=== PATIENT | female | born 1985 ===

== ENCOUNTER 2018-07-14 01:43 | Emergency (ER) | payer OTHER, SELFPAY ==
[2018-07-14 02:03] VITALS: BP 136/84; RESP 16; TEMP 98.6; O2SAT 100
[2018-07-14] MEDS ORDERED: Promethazine/Cod 6.25mg-10mg/5ml Syr UD PO STA (02:41)
[2018-07-14] MEDS ORDERED: Albuterol 0.083% Inhal Sol (2.5 mg/3 mL) UD INH STA (02:42)
[2018-07-14] MEDS ORDERED: Promethazine/Cod 6.25mg-10mg/5ml Syr UD ONE (02:49)
[2018-07-14] MEDS ORDERED: Albuterol 0.083% Inhal Sol (2.5 mg/3 mL) UD ONE (02:50)
--- NOTE | 2018-07-14 03:06 | ED PDOC ---
History of Present Illness History of Present Illness: 33 y/o female with no significant PMHx presents to the ED complaining of cough and congestion associated with sore throat and chest pain, onset two days ago. Patient states cough is dry and chest pain only occurs when she coughs. Patient also reports of feeling congested in the right ear. Patient states she has difficulty breathing at times and will occasionally vomiting with the cough. PMD: No Provider HPI: Influenza Time Seen by Provider: 07/14/18 02:15 Chief Complaint: Cough, Cold, Congestion Chief Complaint (Provider): Cough, Cold, Congestion History Per: Patient Exam Limitations: no limitations Have you had recent travel within the past 21 days to any of: No Onset/Duration Of Symptoms: Days (x2) Symptoms include: sore throat, cough, nasal congestion, vomiting, chest pain, difficulty breathing Past Medical History Reviewed: Historical Data, Nursing Documentation, Vital Signs Vital Signs: Last Vital Signs Temp 98.6 F 07/14/18 02:02 Pulse 90 07/14/18 02:02 Resp 16 07/14/18 02:02 BP 136/84 07/14/18 02:02 Pulse Ox 100 07/14/18 02:02 - Medical History PMH: No Chronic Diseases - Surgical History Surgical History: - Family History Family History: States: Unknown Family Hx - Social History Current smoker - smoking cessation education provided: No Alcohol: None Drugs: Denies - Home Medications Home Medications: Ambulatory Orders Medication Instructions Recorded Codeine Phosphate/Promethazi 5 ml PO Q6 PRN #100 ml 08/03/15 [Promethazine with Codeine 10 mg/5 ml-6.25 mg/] Oseltamivir Phosphate [Tamiflu] 75 mg PO BID #10 cap 08/03/15 Albuterol HFA [Ventolin HFA 90 1 puff IH Q6 PRN #1 inhaler 07/14/18 mcg/actuation (8 g)] Promethazine/Codeine 5 ml PO Q6 PRN #100 ml 07/14/18 [Phenergan/Codeine Oral Syrup] - Allergies Allergies/Adverse Reactions: Allergies Allergy/AdvReac Type Severity Reaction Status Date / Time ibuprofen Allergy Verified 07/14/18 02:40 Review of Systems ROS Statement: Except As Marked, All Systems Reviewed And Found Negative Constitutional: Negative for: Fever ENT: Positive for: Nose Congestion, Throat Pain Cardiovascular: Positive for: Chest Pain Respiratory: Positive for: Cough, Other (Dyspnea) Gastrointestinal: Positive for: Vomiting Physical Exam - Reviewed Nursing Documentation Reviewed: Yes Vital Signs Reviewed: Yes - Physical Exam Appears: Positive for: No Acute Distress (Comfortable) Head Exam: Positive for: ATRAUMATIC, NORMOCEPHALIC Skin: Positive for: Normal Color, Warm, Dry Eye Exam: Positive for: Normal appearance, EOMI, PERRL Neck: Positive for: Normal, Painless ROM, Supple Cardiovascular/Chest: Positive for: Regular Rate, Rhythm. Negative for: Murmur Respiratory: Positive for: Normal Breath Sounds. Negative for: Respiratory Distress Gastrointestinal/Abdominal: Positive for: Normal Exam, Soft. Negative for: Tenderness Back: Positive for: Normal Inspection. Negative for: L CVA Tenderness, R CVA Tenderness, Vertebral Tenderness Extremity: Positive for: Normal ROM. Negative for: Pedal Edema, Deformity Neurologic/Psych: Positive for: Alert, Oriented. Negative for: Motor/Sensory Deficits Medical Decision Making Medical Decision Making: Time: 024 Impression: Cough, Congestion and chest pain Differentials include but not limited to acute bronchitis and Upper Respiratory Infection Rule Out pneumonia Plan: -- EKG -- CXR Two Views -- Albuterol 0.083% 2.5 mg INH -- Phenergan/Codeine Oral Syrup Scribe Attestation: Documented by Manuel Haynes acting as a scribe for Dr. Aaron Pedraza MD. Provider Scribe Attestation: All medical record entries made by the Scribe were at my direction and personally dictated by me. I have reviewed the chart and agree that the record accurately reflects my personal performance of the history, physical exam, medical decision making, and the department course for this patient. I have also personally directed, reviewed, and agree with the discharge instructions and disposition. - ECG ECG Rhythm: Positive for: Normal QRS, Sinus Rhythm. Negative for: ST/T Changes Rate: 79 O2 Sat by Pulse Oximetry: 100 (RA) Pulse Ox Interpretation: Normal Disposition - Clinical Impression Clinical Impression: Bronchitis, URI (upper respiratory infection) - Patient ED Disposition Is Patient to be Admitted: No Doctor Will See Patient In The: Office Counseled Patient/Family Regarding: Studies Performed, Diagnosis, Need For Followup - Disposition Disposition: Routine/Home Disposition Time: 03:57 Condition: GOOD Additional Instructions: Take your medications as instructed. follow up with your PCP in 2-3 days. ELISHA SANCHEZ, thank you for letting us take care of you today. Your provider was Aaron Pedraza MD and you were treated for SOB. The emergency medical care you received today was directed at your acute symptoms. If you were prescribed any medication, please fill it and take as directed. It may take several days for your symptoms to resolve. Return to the Emergency Department if your symptoms worsen, do not improve, or if you have any other problems. Please contact your doctor or call one of the physicians/clinics you have been referred to that are listed on the Patient Visit Information form that is included in your discharge packet. Bring any paperwork you were given at discharge with you along with any medications you are taking to your follow up visit. Our treatment cannot replace ongoing medical care by a primary care provider outside of the emergency department. Thank you for allowing the [facility] team to be part of your care today. If you had an X-Ray or CT scan: A Radiologist will review the ED reading if any change in treatment is needed we will contact you. If you had a blood, urine, or wound culture: It will take several days for the results, if any change in treatment is needed we will contact you. If you had an STI test: It will take 48 hours for the results. Please call after 1 week if you have not heard back. Prescriptions: Albuterol HFA [Ventolin HFA 90 mcg/actuation (8 g)] 1 puff IH Q6 PRN #1 inhaler PRN Reason: Cough Promethazine/Codeine [Phenergan/Codeine Oral Syrup] 5 ml PO Q6 PRN #100 ml PRN Reason: Cough Instructions: Acute Bronchitis
[2018-07-14 03:10] VITALS: PULSE 79
--- NOTE | 2018-07-14 07:34 | CARD ---
APPROVED REPORT Date of service: 07/14/2018 <Conclusion> Normal sinus rhythm Nonspecific ST abnormality Abnormal ECG
--- NOTE | 2018-07-14 16:33 | RAD ---
Date of service: 07/14/2018 HISTORY: chets pain cough COMPARISON: 08/03/2015 TECHNIQUE: Chest PA and lateral FINDINGS: LUNGS: No active pulmonary disease. PLEURA: No significant pleural effusion identified. No pneumothorax apparent. CARDIOVASCULAR: Normal. OSSEOUS STRUCTURES: No significant abnormalities. VISUALIZED UPPER ABDOMEN: Normal. OTHER FINDINGS: None. IMPRESSION: No active disease.
== END 2018-07-14 04:16 | disposition home or self-care (01) ==
LOC: H.ER 01:43
DX: J20.9 Acute bronchitis, unspecified (principal); J06.9 Acute upper respiratory infection, unspecified

== ENCOUNTER 2018-10-01 12:32 | Emergency (ER) | payer SELFPAY ==
[2018-10-01 13:49] LABS: BASO # 0.1 K/uL (0.0-0.2); BASO % 0.9 % (0.0-2.0); EOS # 0.2 K/uL (0.0-0.7); EOS % 2.2 % (0.0-4.0); HEMOGLOBIN 12.3 g/dL (12.0-16.0); LYMPH # 2.7 K/uL (1.0-4.3); LYMPH % 34.8 % (20.0-40.0); MEAN CELL VOLUME 84.9 fl (81.0-99.0); MEAN CORPUSCULAR HEMOGLOBIN 27.7 pg (27.0-31.0); MEAN CORPUSCULAR HGB CONC 32.6 g/dL (33.0-37.0); MEAN PLATELET VOLUME 9.8 fl (7.2-11.7); MONO # 0.5 K/uL (0.0-0.8); MONO % 6.4 % (0.0-10.0); NEUT # 4.3 K/uL (1.8-7.0); NEUT % 55.7 % (50.0-75.0); NRBC % 0.1 % (0.0-0.0); RBC 4.44 Mil/uL (3.80-5.20); RED CELL DISTRIBUTION WIDTH 13.8 % (11.5-14.5); WHITE BLOOD COUNT 7.6 K/uL (4.8-10.8)
[2018-10-01 13:59] LABS: ALB/GLOB RATIO 1.2 (1.0-2.1); ALBUMIN 4.4 g/dL (3.5-5.0); ALT/SGPT 24 U/L (9-52); AST/SGOT 23 U/L (14-36); BLOOD UREA NITROGEN 13 mg/dl (7-17); CALCIUM 9.4 mg/dL (8.4-10.2); GFR NON-AFRICAN AMERICAN > 60; LIPASE 131 U/L (23-300)
--- NOTE | 2018-10-01 15:38 | ED PDOC ---
HPI: Abdomen Time Seen by Provider: 10/01/18 12:52 Chief Complaint (Nursing): Abdominal Pain Chief Complaint (Provider): Abdominal Pain History Per: Patient History/Exam Limitations: no limitations Onset/Duration Of Symptoms: Days (x2) Current Symptoms Are (Timing): Still Present Associated Symptoms: Nausea, Vomiting. denies: Fever Additional Complaint(s): 33 year old female, sent from the [facility], presents to the ED complaining of right upper quadrant pain on going since yesterday but intermittent for a month associated with nausea and vomiting. Last vomiting episode was in the clinic earlier today. Denies fever, yellowing of the skin or eyes, or difficulty breathing. PMD: Christine Menchaca Past Medical History Reviewed: Historical Data, Nursing Documentation, Vital Signs Vital Signs: Last Vital Signs Temp 98.3 F 10/01/18 12:42 Pulse 77 10/01/18 12:42 Resp 16 10/01/18 12:42 BP 133/83 10/01/18 12:42 Pulse Ox 99 10/01/18 12:42 - Medical History PMH: No Chronic Diseases - Surgical History Surgical History: - Family History Family History: States: Unknown Family Hx - Home Medications Home Medications: Ambulatory Orders Medication Instructions Recorded Codeine Phosphate/Promethazi 5 ml PO Q6 PRN #100 ml 08/03/15 [Promethazine with Codeine 10 mg/5 ml-6.25 mg/] Oseltamivir Phosphate [Tamiflu] 75 mg PO BID #10 cap 08/03/15 Albuterol HFA [Ventolin HFA 90 1 puff IH Q6 PRN #1 inhaler 07/14/18 mcg/actuation (8 g)] Promethazine/Codeine 5 ml PO Q6 PRN #100 ml 07/14/18 [Phenergan/Codeine Oral Syrup] Ondansetron ODT [Zofran ODT] 4 mg PO Q6 PRN #10 odt 10/01/18 traMADol [Ultram] 50 mg PO TID PRN #12 tab 10/01/18 - Allergies Allergies/Adverse Reactions: Allergies Allergy/AdvReac Type Severity Reaction Status Date / Time ibuprofen Allergy RASH Verified 10/01/18 12:45 Review of Systems ROS Statement: Except As Marked, All Systems Reviewed And Found Negative Constitutional: Negative for: Fever Cardiovascular: Negative for: Chest Pain Gastrointestinal: Positive for: Nausea, Vomiting, Abdominal Pain Neurological: Negative for: Headache, Dizziness Physical Exam - Reviewed Nursing Documentation Reviewed: Yes Vital Signs Reviewed: Yes - Physical Exam Appears: Positive for: Non-toxic, No Acute Distress (well hydrated) Head Exam: Positive for: ATRAUMATIC, NORMOCEPHALIC Skin: Positive for: Normal Color, Warm, Dry. Negative for: Pallor Eye Exam: Positive for: Normal appearance. Negative for: Scleral icterus Neck: Positive for: Normal, Painless ROM Cardiovascular/Chest: Positive for: Regular Rate, Rhythm. Negative for: Murmur Respiratory: Positive for: Normal Breath Sounds. Negative for: Wheezing, Respiratory Distress Gastrointestinal/Abdominal: Positive for: Tenderness (Epigastric tenderness) Extremity: Positive for: Normal ROM Neurologic/Psych: Positive for: Alert, Oriented. Negative for: Motor/Sensory Deficits - Laboratory Results Result Diagrams: 10/01/18 13:38 10/01/18 13:38 - ECG O2 Sat by Pulse Oximetry: 99 (RA) Pulse Ox Interpretation: Normal Medical Decision Making Medical Decision Making: Initial Impression: Workup for upper abdominal pain r/o biliary colic Initial Plan: --CMP --Lipase stat --ED urine --ED urine dipstick --CBC --Tylenol 650mg PO --Zofran 4mg IV --Abdomen US Chest X-ray from June which was read by radiology was negative. Labs reviewed and unremarkable including LFTs. Awaiting abdominal ultrasound. Zofran and Tylenol ordered for pain and symptoms. Labs reviewed LFTs and WBC negative US report reviewed +gallstones but no cholecystitis, normal CBD Discussed results w patient and need for referral to surgery soon, explained risks of procrastinating with scheduling appt or potential surgery, and indicati ons for return. DC from ED given normal WBC, normal LFTs, no evidence cholecystitis and normal CBD. Fat free diet, fluids, surgery referral soon. Scribe Attestation: Documented by Genaro Amos acting as a scribe for Roby Francois III, DO. Provider Scribe Attestation: All medical record entries made by the Scribe were at my direction and personally dictated by me. I have reviewed the chart and agree that the record accurately reflects my personal performance of the history, physical exam, medical decision making, and the department course for this patient. I have also personally directed, reviewed, and agree with the discharge instructions and disposition. Disposition - Clinical Impression Clinical Impression: Gallstones - Patient ED Disposition Is Patient to be Admitted: No Counseled Patient/Family Regarding: Studies Performed, Diagnosis, Need For Followup, Rx Given - Disposition Referrals: Jason Orozco MD [Staff Provider] - Disposition: Routine/Home Disposition Time: 16:45 Condition: STABLE Additional Instructions: SEE GENERAL SURGEON FOR FURTHER TESTING AND POSSIBLE SURGERY FOR REMOVAL OF GALLBLADDER. RECOMMEND LOW FAT DIET, DRINK PLENTY OF FLUIDS AND RETURN TO ER FOR ANY WORSE OR NEW SYMPTOMS. DELAYING SURGERY COULD HAVE SIGNIFICANT COMPLICATIONS TO YOUR LIVER, PANCREAS AND OTHER ABDOMINAL ORGANS. Prescriptions: Ondansetron ODT [Zofran ODT] 4 mg PO Q6 PRN #10 odt PRN Reason: Nausea/Vomiting traMADol [Ultram] 50 mg PO TID PRN #12 tab PRN Reason: Pain, Moderate (4-7) Instructions: Gallstones (DC) Forms: [employer] (Telugu)
--- NOTE | 2018-10-01 16:53 | US ---
Date of service: 10/01/2018 HISTORY: RUQ pain COMPARISON: None. TECHNIQUE: Sonographic evaluation of the right upper quadrant of the abdomen. FINDINGS: LIVER: Measures 15.2 cm in length. Diffusely echogenic echogenicity of the liver parenchyma. No mass. No intrahepatic bile duct dilatation. GALLBLADDER: Moderate gallbladder distention is appreciate with cholelithiasis in the lumen. No significant mural thickening. No reported sonographic Garnica sign. No pericholecystic fluid collection evident. COMMON BILE DUCT: Measures 3.0 mm. No stones. No dilatation. PANCREAS: The tail of the pancreas is obscured by overlying bowel gas with remainder unremarkable. RIGHT KIDNEY: Measures 11.9 cm in length. Normal echogenicity. No calculus, mass, or hydronephrosis. AORTA: No aneurysmal dilatation. IVC: Unremarkable. OTHER FINDINGS: None . IMPRESSION: Hepatic steatosis or other infiltrative hepatic process appreciated. Cholelithiasis without suspicious additional findings. Normal caliber CBD. Partial imaging of the pancreas.
[2018-10-01 17:44] VITALS: BP 115/74; PULSE 88; RESP 18; TEMP 98.2; O2SAT 98
== END 2018-10-01 17:43 | disposition home or self-care (01) ==
LOC: H.ER 12:32
DX: K80.20 Calculus of gallbladder without cholecystitis without obstruction (principal)
CPT/HCPCS: 76705; 80053; 81025; 83690; 85025; 99283; J2405

== ENCOUNTER 2018-10-08 18:41 | Emergency (ER) | payer SELFPAY ==
[2018-10-08 19:42] VITALS: BP 133/81; PULSE 76; RESP 18; TEMP 98; O2SAT 100
[2018-10-08] MEDS ORDERED: Sodium Chloride 0.9% 1,000 ML IV STA (20:40)
--- NOTE | 2018-10-08 20:43 | ED PDOC ---
HPI: Abdomen Time Seen by Provider: 10/08/18 20:07 Chief Complaint (Nursing): Abdominal Pain Chief Complaint (Provider): abdominal pain History Per: Patient History/Exam Limitations: no limitations Onset/Duration Of Symptoms: Days (1) Current Symptoms Are (Timing): Still Present Location Of Pain/Discomfort: RUQ, Epigastric Associated Symptoms: Nausea, Vomiting Additional Complaint(s): 33 y/o female presents for evaluation of upper abdominal pain x 1 day. Associated 5 episodes of vomiting. Patient states she has been having similar problems for one month now, was evaluated in ED one week ago and found to have gallbladder disease and is scheduled to see the surgeon on . Patient states she presents today due to persistent vomiting that began this morning. Patient reports pain in her abdomen when she vomits. Denies fever, chest pain, shortness of breath, palpitations, urinary symptoms. Past Medical History Reviewed: Historical Data, Nursing Documentation, Vital Signs Vital Signs: Last Vital Signs Temp 98 F 10/08/18 19:40 Pulse 76 10/08/18 19:40 Resp 18 10/08/18 19:40 BP 133/81 10/08/18 19:40 Pulse Ox 100 10/08/18 19:40 - Medical History PMH: No Chronic Diseases - Surgical History Surgical History: - Family History Family History: States: Unknown Family Hx - Living Arrangements Living Arrangements: With Family - Home Medications Home Medications: Ambulatory Orders Medication Instructions Recorded Codeine Phosphate/Promethazi 5 ml PO Q6 PRN #100 ml 08/03/15 [Promethazine with Codeine 10 mg/5 ml-6.25 mg/] Oseltamivir Phosphate [Tamiflu] 75 mg PO BID #10 cap 08/03/15 Albuterol HFA [Ventolin HFA 90 1 puff IH Q6 PRN #1 inhaler 07/14/18 mcg/actuation (8 g)] Promethazine/Codeine 5 ml PO Q6 PRN #100 ml 07/14/18 [Phenergan/Codeine Oral Syrup] Ondansetron ODT [Zofran ODT] 4 mg PO Q6 PRN #10 odt 10/01/18 traMADol [Ultram] 50 mg PO TID PRN #12 tab 10/01/18 - Allergies Allergies/Adverse Reactions: Allergies Allergy/AdvReac Type Severity Reaction Status Date / Time ibuprofen Allergy RASH Verified 10/08/18 19:40 Review of Systems ROS Statement: Except As Marked, All Systems Reviewed And Found Negative Gastrointestinal: Positive for: Nausea, Vomiting, Abdominal Pain Physical Exam - Reviewed Nursing Documentation Reviewed: Yes Vital Signs Reviewed: Yes - Physical Exam Appears: Positive for: Well, Non-toxic, No Acute Distress Head Exam: Positive for: ATRAUMATIC, NORMAL INSPECTION, NORMOCEPHALIC Skin: Positive for: Normal Color Eye Exam: Positive for: Normal appearance ENT: Positive for: Normal ENT Inspection Cardiovascular/Chest: Positive for: Regular Rate, Rhythm Respiratory: Positive for: Normal Breath Sounds Gastrointestinal/Abdominal: Positive for: Bowel Sounds, Soft, Tenderness (epigastric, RUQ; neg Garnica's) Back: Positive for: Normal Inspection Extremity: Positive for: Normal ROM Neurologic/Psych: Positive for: Alert, Oriented - Laboratory Results Result Diagrams: 10/08/18 21:18 10/08/18 21:18 - ECG O2 Sat by Pulse Oximetry: 100 - Progress ED Course And Treament: -cbc -cmp -lipase -IV NS 1L bolis -IV reglan 10mg 22:00 Patient resting comfortably; states she is feeling better, tolerated PO and is requesting to be discharged at this time Labs show no significant changes from last week Patient educated on findings, advised to follow up with surgeon as scheduled on Continue previously prescribed medications PRN Return precautions given Patient demonstrates full understanding of discharge instructions Patient requires no further intervention in the ED and is stable for discharge at this time Disposition - Clinical Impression Clinical Impression: Gallstones - Patient ED Disposition Is Patient to be Admitted: No Counseled Patient/Family Regarding: Studies Performed, Diagnosis, Need For Followup - Disposition Disposition: Routine/Home Disposition Time: 22:01 Condition: IMPROVED Additional Instructions: Follow up with your surgeon as scheduled [place] diet Instructions: Gallstones
[2018-10-08 21:22] LABS: SQUAMOUS EPITHIAL 1 /hpf (0-5); URINE BILIRUBIN NEGATIVE (NEGATIVE); URINE BLOOD SMALL (NEGATIVE); URINE CLARITY CLEAR (Clear); URINE COLOR STRAW (YELLOW); URINE GLUCOSE (UA) NEG (Normal); URINE LEUKOCYTE ESTERASE SMALL Leu/uL (Negative); URINE PROTEIN NEGATIVE (NEGATIVE); URINE UROBILINOGEN 0.2-1.0 mg/dL (0.2-1.0)
[2018-10-08 21:29] LABS: BASO # 0.1 K/uL (0.0-0.2); BASO % 0.6 % (0.0-2.0); EOS # 0.2 K/uL (0.0-0.7); EOS % 2.3 % (0.0-4.0); HEMOGLOBIN 12.4 g/dL (12.0-16.0); LYMPH # 3.1 K/uL (1.0-4.3); LYMPH % 34.4 % (20.0-40.0); MEAN CORPUSCULAR HEMOGLOBIN 26.8 pg (27.0-31.0); MEAN CORPUSCULAR HGB CONC 32.3 g/dL (33.0-37.0); MEAN PLATELET VOLUME 10.3 fl (7.2-11.7); MONO # 0.7 K/uL (0.0-0.8); MONO % 7.4 % (0.0-10.0); NEUT # 4.9 K/uL (1.8-7.0); NEUT % 55.3 % (50.0-75.0); NRBC % 0.1 % (0.0-0.0); RBC 4.62 Mil/uL (3.80-5.20); RED CELL DISTRIBUTION WIDTH 13.6 % (11.5-14.5); WHITE BLOOD COUNT 8.9 K/uL (4.8-10.8)
[2018-10-08 21:45] LABS: ALB/GLOB RATIO 1.4 (1.0-2.1); ALBUMIN 4.6 g/dL (3.5-5.0); ALT/SGPT 29 U/L (9-52); AST/SGOT 22 U/L (14-36); BLOOD UREA NITROGEN 10 mg/dl (7-17); CALCIUM 9.7 mg/dL (8.4-10.2); GFR NON-AFRICAN AMERICAN > 60; LIPASE 140 U/L (23-300)
== END 2018-10-08 22:20 | disposition home or self-care (01) ==
LOC: H.ER 18:41
DX: K80.20 Calculus of gallbladder without cholecystitis without obstruction (principal); Z79.899 Other long term (current) drug therapy
CPT/HCPCS: 80053; 81003; 81025; 83690; 85025; 96360; 99283; J2765; J7030

== ENCOUNTER 2018-10-31 10:52 | Day surgery (SDC) | payer SELFPAY ==
[2018-10-19 09:58] VITALS: BMI 27.7
[2018-10-31 13:16] LABS: BASO # 0.1 K/uL (0.0-0.2); EOS # 0.1 K/uL (0.0-0.7); EOS % 1.7 % (0.0-4.0); LYMPH # 2.7 K/uL (1.0-4.3); LYMPH % 40.2 % (20.0-40.0); MEAN CELL VOLUME 81.8 fl (81.0-99.0); MEAN CORPUSCULAR HEMOGLOBIN 27.1 pg (27.0-31.0); MEAN CORPUSCULAR HGB CONC 33.1 g/dL (33.0-37.0); MEAN PLATELET VOLUME 9.9 fl (7.2-11.7); MONO # 0.5 K/uL (0.0-0.8); MONO % 7.3 % (0.0-10.0); NEUT # 3.3 K/uL (1.8-7.0); NEUT % 49.8 % (50.0-75.0); NRBC % 0.1 % (0.0-0.0); RBC 4.44 Mil/uL (3.80-5.20); RED CELL DISTRIBUTION WIDTH 13.3 % (11.5-14.5); WHITE BLOOD COUNT 6.7 K/uL (4.8-10.8)
[2018-10-31] MEDS ORDERED: Propofol 10 mg/ml Inj (20 ML) ONE (13:44)
[2018-10-31] MEDS ORDERED: Midazolam 2 MG/2 ML VIAL ONE (13:45)
[2018-10-31] MEDS ORDERED: Succinylcholine 200 mg/10 ml Inj IV ONE (13:45)
[2018-10-31] MEDS ORDERED: Rocuronium 10 mg/ml (5 ml) ONE (13:45)
[2018-10-31] MEDS ORDERED: ceFAZolin IV 1 gm in Dextrose 2 GM/100 ML BAG IVPB ONE (13:55)
[2018-10-31] MEDS ORDERED: Lactated Ringer's 1,000 ML IV ONE ×2 (14:00→14:59)
[2018-10-31] MEDS ORDERED: Neostigmine 1:1000 (1 mg/ml) Inj ONE (14:57)
--- NOTE | 2018-10-31 15:54 | CP.SDSHP ---
Same Day Surgery H & P - History Proposed Procedure: Laparoscopic Cholecystectomy Pre-Op Diagnosis: Acute Cholecystitis - Previous Medical/Surgical History Previous Surgical History: Denies - Allergies Allergies: NKDA - Physical Exam General Appearance: NAD Vital Signs: Vital Signs 10/31/18 10/31/18 12:57 13:03 Temperature 97.9 F Pulse Rate 71 71 Respiratory 18 Rate Blood Pressure 135/88 O2 Sat by Pulse 100 Oximetry Mental Status: Alert & Oriented x3 Neuro: WNL Heart: WNL Lungs: WNL GI: WNL - {Optional Preform as Required} Abdomen: WNL - Impression Impression: Cholelithiasis Short Stay Discharge - Short Stay Discharge Admitting Diagnosis/Reason for Visit: K80.20 Disposition: HOME/ ROUTINE Referrals: Jeff Dey MD [Staff Provider] - Follow-up: Please follow up in 2-4 weeks Instructions: Gallstones, Gallstones (DC) Additional Instructions (Diet, Activity): Return to regular diet Glue on incision will fall off on their own May shower but do not bath Take prescriptions as directed
--- NOTE | 2018-10-31 15:59 | PCM.SURG1 ---
Surgeon's Initial Post Op Note - Surgeon's Notes Surgeon: MD [employer] Director: Maxwell, PGY3 Pre-Operative Diagnosis: Symptomatic Cholelithiasis Operative Findings: Cholelithiasis, cholecystitis Post-Operative Diagnosis: Cholecystitis Operation Performed: Laparoscopic cholecystectomy Specimen/Specimens Removed: Gallbladder Estimated Blood Loss: EBL {In ML}: 20 Date of Surgery/Procedure: 10/31/18 Time of Surgery/Procedure: 13:30
[2018-10-31] MEDS: HYDROmorphone 0.5 mg/0.5 ml ISec IVP PRN ×2 (16:15→16:30)
[2018-10-31] MEDS ORDERED: HYDROmorphone 0.5 mg/0.5 ml ISec ONE ×2 (16:22→17:27)
[2018-10-31] MEDS ORDERED: Lactated Ringer's 1,000 ML IV SCH (16:30)
[2018-10-31] MEDS ORDERED: Dexamethasone 4 mg/1 ml IVP PRN (17:00)
[2018-10-31 18:20] VITALS: O2SAT 97
[2018-10-31 19:21] VITALS: BP 103/57; PULSE 66; RESP 20; TEMP 97.5
--- NOTE | 2018-11-01 08:41 | OP ---
PROCEDURE DATE: 10/31/2018 SURGEON: Jeff Dey MD BODY STYLIST: Jonny Arreola DO ANESTHESIA: General. ANESTHESIOLOGIST: Iona Elam MD PREOPERATIVE DIAGNOSIS: Acute cholecystitis. POSTOPERATIVE DIAGNOSIS: Acute cholecystitis. PROCEDURE: Laparoscopic cholecystectomy. DESCRIPTION OF OPERATION: With the patient in the supine position, the abdomen was prepped and draped in the usual sterile fashion. A Veress needle puncture was performed at the umbilicus with insufflation to 15 mL water pressure of CO2, and a 10-mm laparoscopic trocar was inserted via an infraumbilical incision. Under direct vision, additional trocars were inserted in the epigastrium and right costal margin. The gallbladder was visualized. A grasper was used to grasp the fundus of the gallbladder and retract cephalad. Then, the infundibulum was grasped and retracted laterally. Dissection began in the cystic triangle with laparoscopic [place]. We dissected off the peritoneum and the fat in the cystic triangle. The cystic duct was identified and dissected. It was cleared down to the area of the common bile duct. A clip was then placed in the cystic duct close to the gallbladder and also to distal of the gallbladder. Laparoscopic scissors were used to transect the cystic duct. Further dissection continued with [place] dissector bluntly to expose the cystic artery. When the cystic artery was identified, two clips were placed distal to the gallbladder and one proximal to the gallbladder on the cystic artery. Laparoscopic scissors were used to transect the cystic. Upon transection of the cystic duct and cystic artery, the gallbladder was dissected free from the liver bed using electrocautery. The liver bed was inspected for hemostasis, and the dissection was completed. The gallbladder was placed in a specimen retrieval bag and removed via the umbilical port site. The gallbladder was noted to contain gallstones. The right upper quadrant was irrigated and suctioned until clear fluid was seen coming out of the suction tube. The pneumoperitoneum was released, and the trocars were removed under visualization. The umbilical port was placed with a [id number] fascial suture using 0 Vicryl stitch. All incisions were closed with 4-0 Monocryl and Dermabond was used for superficial dressing. The patient tolerated the procedure well and was transferred to the recovery room in stable condition. Estimated blood loss on the procedure was 20 mL. Jonny Arreola DO Jeff Dey MD [facility] # [id number] MTDJuan Antonio
== END 2018-10-31 19:47 | disposition home or self-care (01) ==
LOC: H.OPSURG 10:52
PROVIDERS: ATTEND Specialist
DX: K80.00 Calculus of gallbladder with acute cholecystitis without obstruction (principal)
CPT/HCPCS: 36415; 47562; 85025; 88304; J0330; J0690; J1100; J1170; J1885; J2001; J2250; J2405; J2704; J2710; J3010; J7030; J7120

== ENCOUNTER 2018-11-15 12:17 | Emergency (ER) | payer SELFPAY ==
[2018-11-15 12:17] VITALS: BMI 27.7
--- NOTE | 2018-11-15 12:49 | ED PDOC ---
HPI: Abdomen Time Seen by Provider: 11/15/18 12:48 Chief Complaint (Nursing): Abdominal Pain Chief Complaint (Provider): abd pain History Per: Patient Additional Complaint(s): 33 y/o female s/p cholecystectomy on 10/31/18 presents with right upper abdominal pain, nausea and shortness of breath since the time of surgery but worse in the past 48 hrs. Patient was seen last week at clinic and was prescribed Zofran but continues to be nauseous and vomited earlier today. Patient feels that she has had chills but denies fever. She has been taking tylenol for pain but this has not helped. Patient has decreased appetite and has had moderate pain to affected area especially with movement and with taking a deep breath. PMD: [facility] Past Medical History Reviewed: Historical Data, Nursing Documentation, Vital Signs Vital Signs: Last Vital Signs Temp 97.0 F L 11/15/18 12:45 Pulse 111 H 11/15/18 12:45 Resp 22 11/15/18 12:45 BP 150/66 11/15/18 12:45 Pulse Ox 99 11/15/18 12:45 - Medical History PMH: No Chronic Diseases - Surgical History Surgical History: Cholecystectomy, - Family History Family History: States: Unknown Family Hx - Living Arrangements Living Arrangements: With Family - Social History Current smoker - smoking cessation education provided: No Alcohol: None Drugs: Denies - Home Medications Home Medications: Ambulatory Orders Medication Instructions Recorded Vitamin B Complex [Nature's Blend 1 tab PO DAILY 10/31/18 Balance B-100] Vitamin E 200 unit PO DAILY 10/31/18 oxyCODONE/Acetaminophen [Percocet 1 tab PO Q4 PRN 10/31/18 5/325 mg Tab] Metoclopramide [Reglan] 10 mg PO Q6 PRN #30 tab 11/15/18 Nitrofurantoin Macrocrystals 100 mg PO BID #14 cap 11/15/18 [Macrobid] Sucralfate [Carafate] 1 gm PO QID #300 ml 11/15/18 - Allergies Allergies/Adverse Reactions: Allergies Allergy/AdvReac Type Severity Reaction Status Date / Time No Known Allergies Allergy Verified 10/31/18 15:59 Review of Systems ROS Statement: Except As Marked, All Systems Reviewed And Found Negative Constitutional: Positive for: Chills. Negative for: Fever Cardiovascular: Negative for: Chest Pain Respiratory: Positive for: Shortness of Breath. Negative for: Cough Gastrointestinal: Positive for: Nausea, Vomiting, Abdominal Pain. Negative for: Diarrhea, Constipation Genitourinary Female: Negative for: Dysuria Physical Exam - Reviewed Nursing Documentation Reviewed: Yes Vital Signs Reviewed: Yes - Physical Exam Appears: Positive for: Well, Non-toxic, No Acute Distress Skin: Positive for: Normal Color. Negative for: Rash Eye Exam: Positive for: Normal appearance Cardiovascular/Chest: Positive for: Regular Rate, Rhythm Respiratory: Positive for: Normal Breath Sounds. Negative for: Wheezing, Respiratory Distress Gastrointestinal/Abdominal: Positive for: Other (moderate tenderness to right upper quadrant, no distention, rebound or guarding, laparoscopic surgical incisions are clean, dry and intact with no infection, active bleeding or draining.) Extremity: Positive for: Normal ROM. Negative for: Pedal Edema Neurologic/Psych: Positive for: Alert, Oriented - Laboratory Results Result Diagrams: 11/15/18 13:50 11/15/18 13:50 Urine POC: Negative Urine dip results: Positive for: Leukocyte Esterase (small), Blood (large) - ECG O2 Sat by Pulse Oximetry: 99 Pulse Ox Interpretation: Normal - Other Rad CT chest, abd and pelvis with IV contrast X-Ray: Read By Radiologist X-Ray Interpretation: see below Medical Decision Making Medical Decision Makin33 year old with post-op abdominal pain Plan: CBC CMP Lipase Urine dip IVF IV toradol IV zofran CT chest, abd and pelvis with IV contrast Previous records indicate that surgery was completed by Dr. Dey. Case was discussed with Dr. Wells, vice president of procurement who agrees with the above plan and willl come to ED to see patient. CT: CT CHEST WITH CONTRAST: LUNGS: Clear. No nodule, mass or consolidation. MEDIASTINUM: Unremarkable. Normal caliber aorta and pulmonary arterial trunk. No aortic dissection. Normal size heart. Small hiatal hernia. LYMPH NODES: Unremarkable. PLEURA: Unremarkable. No pneumothorax. No pleural fluid. BONES: Unremarkable. OTHER FINDINGS: None. CT ABDOMEN AND PELVIS: LIVER: Normal size and contour. There is a wedge-shaped area of diminished attenuation in anterior right hepatic lobe likely representing a normal variant appearance of fatty infiltration. No mass. No biliary dilatation. GALLBLADDER AND BILE DUCTS: Status post cholecystectomy. Trace fluid in gallbladder fossa. Question is raised as to how recent the cholecystectomy is. No associated pneumoperitoneum. PANCREAS: Unremarkable. No gross lesion or ductal dilatation. SPLEEN: Unremarkable. ADRENALS: Unremarkable. No mass. KIDNEYS AND URETERS: Unremarkable. No hydronephrosis. No solid mass. VASCULATURE: No aortic atherosclerotic calcification or mural plaque present. Unremarkable. No aortic aneurysm. BOWEL: Unremarkable. No obstruction. No gross mural thickening. APPENDIX: Normal appendix. PERITONEUM: Trace fluid in cul-de-sac. No generalized ascites. No pneumoperitoneum. LYMPH NODES: Unremarkable. No enla rged lymph nodes. BLADDER: Unremarkable. REPRODUCTIVE: Globular enlarged heterogeneous uterus likely the result of fibroids. Correlate with pelvic ultrasound examination on a nonemergent basis. BONES: No acute fracture. OTHER FINDINGS: None. IMPRESSION: Trace fluid in gallbladder fossa. Status post cholecystectomy. Not known at this time however recent the cholecystectomy was. Please correlate. Nonspecific finding.. Small hiatal hernia. Probable atypical fatty infiltration of the right lobe of the liver. Probable uterine fibroids. Correlate with pelvic ultrasound examination. Trace ascites in cul-de-sac. Patient states pain is better after meds were given but she does have persistent mild nausea. Additional 4 mg IV Zofran administered. Patient aware of all diagnostic testing results, all questions answered. As per Dr. Wells, prescription given for upper GI series for patient to obtain as outpatient. Prescriptions also given for Carafate and Reglan as per Dr. Wells. patient has follow-up appointment next week at clinic. Patient also aware she can return to ED any time if acutely worse. Urinary tract infection also noted, prescription for Macrobid provided. Disposition - Clinical Impression Clinical Impression: Postoperative abdominal pain, Urinary tract infection - Patient ED Disposition Is Patient to be Admitted: No Counseled Patient/Family Regarding: Studies Performed, Diagnosis, Need For Followup, Rx Given - Disposition Referrals: [facility] [Outside] Disposition: Routine/Home Disposition Time: 17:28 Condition: STABLE Additional Instructions: Take prescription meds as directed. Follow bland diet and drink plenty fluids. Take Advil for pain as needed. Contact outpatient radiology to schedule upper GI series. Follow-up as scheduled next Monday with clinic or return to emergency room any time if acutely worsen. Prescriptions: Metoclopramide [Reglan] 10 mg PO Q6 PRN #30 tab PRN Reason: Nausea/Vomiting Nitrofurantoin Macrocrystals [Macrobid] 100 mg PO BID #14 cap Sucralfate [Carafate] 1 gm PO QID #300 ml Instructions: Urinary Tract Infection, Adult (DC), Managing Pain After Surgery, Stomach Ache and Stomach Upset Forms: [employer] (Welsh) Results - Vital Signs Recent Vital Signs: Last Vital Signs Temp 98.7 F 11/15/18 15:36 Pulse 77 11/15/18 15:36 Resp 16 11/15/18 15:36 BP 124/75 11/15/18 15:36 Pulse Ox 99 11/15/18 18:01 - Labs Result Diagrams: 11/15/18 13:50 11/15/18 13:50 Labs: Laboratory Results - last 24 hr 11/15/18 11/15/18 11/15/18 13:25 13:50 13:50 WBC 8.9 RBC 4.83 Hgb 13.1 Hct 39.6 MCV 81.9 MCH 27.0 MCHC 33.0 RDW 13.7 Plt Count 237 MPV 10.8 Neut % (Auto) 65.6 Lymph % (Auto) 24.7 Pierce % (Auto) 6.1 Eos % (Auto) 2.6 Baso % (Auto) 1.0 Neut # (Auto) 5.8 Lymph # (Auto) 2.2 Pierce # (Auto) 0.5 Eos # (Auto) 0.2 Baso # (Auto) 0.1 Sodium 141 Potassium 3.8 Chloride 105 Carbon Dioxide 23 Anion Gap 17 BUN 8 Creatinine 0.7 Est GFR ( Amer) > 60 Est GFR (Non-Af Amer) > 60 Random Glucose 89 Calcium 9.6 Total Bilirubin 0.4 AST 31 ALT 45 Alkaline Phosphatase 85 Total Protein 8.2 Albumin 4.7 Globulin 3.5 Albumin/Globulin Ratio 1.4 Lipase 88 Urine Color Straw Urine Clarity Clear Urine pH 6.0 Ur Specific [place] 1.005 Urine Protein Negative Urine Glucose (UA) Neg Urine Ketones Negative Urine Blood Moderate Urine Nitrate Negative Urine Bilirubin Negative Urine Urobilinogen 0.2-1.0 Ur Leukocyte Esterase Trace Urine RBC (Auto) 1 Urine Microscopic WBC 2 Ur Squamous Epith Cells 2 Urine Bacteria Occ H
[2018-11-15] MEDS ORDERED: Sodium Chloride 0.9% 1,000 ML IV STA (13:18)
[2018-11-15 14:04] LABS: BASO # 0.1 K/uL (0.0-0.2); EOS # 0.2 K/uL (0.0-0.7); EOS % 2.6 % (0.0-4.0); HEMOGLOBIN 13.1 g/dL (12.0-16.0); LYMPH # 2.2 K/uL (1.0-4.3); LYMPH % 24.7 % (20.0-40.0); MEAN CELL VOLUME 81.9 fl (81.0-99.0); MEAN PLATELET VOLUME 10.8 fl (7.2-11.7); MONO # 0.5 K/uL (0.0-0.8); MONO % 6.1 % (0.0-10.0); NEUT # 5.8 K/uL (1.8-7.0); NEUT % 65.6 % (50.0-75.0); RBC 4.83 Mil/uL (3.80-5.20); RED CELL DISTRIBUTION WIDTH 13.7 % (11.5-14.5); WHITE BLOOD COUNT 8.9 K/uL (4.8-10.8)
[2018-11-15 14:14] LABS: ALB/GLOB RATIO 1.4 (1.0-2.1); ALBUMIN 4.7 g/dL (3.5-5.0); ALT/SGPT 45 U/L (9-52); AST/SGOT 31 U/L (14-36); BLOOD UREA NITROGEN 8 mg/dl (7-17); CALCIUM 9.6 mg/dL (8.4-10.2); GFR NON-AFRICAN AMERICAN > 60; LIPASE 88 U/L (23-300)
[2018-11-15] MEDS ORDERED: Iohexol 300 100 ML IJ ONE (14:25)
[2018-11-15] MEDS ORDERED: Sodium Chloride 0.9% 50 ML IV ONE (14:25)
[2018-11-15 14:33] LABS: SQUAMOUS EPITHIAL 2 /hpf (0-5); URINE BACTERIA OCC (<OCC); URINE BILIRUBIN NEGATIVE (NEGATIVE); URINE BLOOD MODERATE (NEGATIVE); URINE CLARITY CLEAR (Clear); URINE COLOR STRAW (YELLOW); URINE GLUCOSE (UA) NEG (NEGATIVE); URINE LEUKOCYTE ESTERASE TRACE Leu/uL (Negative); URINE PROTEIN NEGATIVE (NEGATIVE); URINE UROBILINOGEN 0.2-1.0 mg/dL (0.2-1.0)
--- NOTE | 2018-11-15 16:14 | CT ---
Date of service: 11/15/2018 PROCEDURE: CT Chest, Abdomen and Pelvis with intravenous contrast HISTORY: ride side pain, SOB, nausea COMPARISON: CT abdomen/pelvis 11/20/2019 TECHNIQUE: IV dose administered: 95 cc Omnipaque 300 Radiation dose: Total exam DLP = 402.26 mGy-cm. This CT exam was performed using one or more of the following dose reduction techniques: Automated exposure control, adjustment of the mA and/or kV according to patient size, and/or use of iterative reconstruction technique. FINDINGS: CT CHEST WITH CONTRAST: LUNGS: Clear. No nodule, mass or consolidation. MEDIASTINUM: Unremarkable. Normal caliber aorta and pulmonary arterial trunk. No aortic dissection. Normal size heart. Small hiatal hernia. LYMPH NODES: Unremarkable. PLEURA: Unremarkable. No pneumothorax. No pleural fluid. BONES: Unremarkable. OTHER FINDINGS: None. CT ABDOMEN AND PELVIS: LIVER: Normal size and contour. There is a wedge-shaped area of diminished attenuation in anterior right hepatic lobe likely representing a normal variant appearance of fatty infiltration. No mass. No biliary dilatation. GALLBLADDER AND BILE DUCTS: Status post cholecystectomy. Trace fluid in gallbladder fossa. Question is raised as to how recent the cholecystectomy is. No associated pneumoperitoneum. PANCREAS: Unremarkable. No gross lesion or ductal dilatation. SPLEEN: Unremarkable. ADRENALS: Unremarkable. No mass. KIDNEYS AND URETERS: Unremarkable. No hydronephrosis. No solid mass. VASCULATURE: No aortic atherosclerotic calcification or mural plaque present. Unremarkable. No aortic aneurysm. BOWEL: Unremarkable. No obstruction. No gross mural thickening. APPENDIX: Normal appendix. PERITONEUM: Trace fluid in cul-de-sac. No generalized ascites. No pneumoperitoneum. LYMPH NODES: Unremarkable. No enlarged lymph nodes. BLADDER: Unremarkable. REPRODUCTIVE: Globular enlarged heterogeneous uterus likely the result of fibroids. Correlate with pelvic ultrasound examination on a nonemergent basis. BONES: No acute fracture. OTHER FINDINGS: None. IMPRESSION: Trace fluid in gallbladder fossa. Status post cholecystectomy. Not known at this time however recent the cholecystectomy was. Please correlate. Nonspecific finding.. Small hiatal hernia. Probable atypical fatty infiltration of the right lobe of the liver. Probable uterine fibroids. Correlate with pelvic ultrasound examination. Trace ascites in cul-de-sac.
[2018-11-15 16:37] VITALS: RESP 16
[2018-11-15 18:16] VITALS: BP 126/71; PULSE 71; TEMP 98.3
[2018-11-15 18:17] VITALS: O2SAT 99
== END 2018-11-15 18:10 | disposition home or self-care (01) ==
LOC: H.ER 12:17
DX: G89.18 Other acute postprocedural pain (principal); N39.0 Urinary tract infection, site not specified
CPT/HCPCS: 71260; 74177; 80053; 81003; 81025; 83690; 85025; 87040; 87086; 96360; 99285; J1885; J2405; J7030; Q9967

== ENCOUNTER 2019-02-04 17:55 | Emergency (ER) | payer SELFPAY ==
[2019-02-04 17:55] VITALS: BMI 27.7
[2019-02-04 18:02] VITALS: RESP 16
--- NOTE | 2019-02-04 18:41 | ED PDOC ---
HPI: Female Pain Time Seen by Provider: 02/04/19 18:15 Chief Complaint (Nursing): Female Genitourinary Chief Complaint (Provider): BLE flank pain/dysuria History/Exam Limitations: no limitations Onset/Duration Of Symptoms: Days Current Symptoms Are (Timing): Still Present Severity: Moderate Pain Scale Rating Of: 7 Quality Of Discomfort: Pressure Associated Symptoms: Chills, Nausea, Vomiting, Back Pain, Urinary Symptoms Alleviating Factors: OTC Meds (Tylenol taken yesterday, none today) Additional History Per: Patient Additional Complaint(s): 33 y/o female with no medical hx presents to ed c/o bilateral flank pain, lower back pain intermittent for 3 weeks. suprapubiuc pain, n/v with associated chills and dysuria started yesterday. Pt reports she had 3 episodes of vomiting today. Denies fever, diarrhea or constipation. Denies vaginal bleeding/ vag discharge, itchiness or burning. Pt reports at taking Tylenol yesterday for pain with some relief. Pt did not take any meds today. Abnormal Vaginal Bleeding: No Last Menstral Period: 01/18/2019 : 2 Para: 2 Past Medical History Reviewed: Historical Data, Nursing Documentation, Vital Signs Vital Signs: Last Vital Signs Temp 98.5 F 02/04/19 18:01 Pulse 70 02/04/19 18:01 Resp 16 02/04/19 18:01 BP 132/90 02/04/19 18:01 Pulse Ox 98 02/04/19 18:01 - Medical History PMH: No Chronic Diseases Denies: Chronic Kidney Disease - Surgical History Surgical History: Cholecystectomy, - Family History Family History: States: Unknown Family Hx - Living Arrangements Living Arrangements: With Family - Social History Current smoker - smoking cessation education provided: No Ex-Smoker (has not smoked in the last 12 months): No Alcohol: None Drugs: Denies - Home Medications Home Medications: Ambulatory Orders Medication Instructions Recorded Vitamin B Complex [Nature's Blend 1 tab PO DAILY 10/31/18 Balance B-100] Vitamin E 200 unit PO DAILY 10/31/18 oxyCODONE/Acetaminophen [Percocet 1 tab PO Q4 PRN 10/31/18 5/325 mg Tab] Metoclopramide [Reglan] 10 mg PO Q6 PRN #30 tab 12/20/18 Nitrofurantoin Macrocrystals 100 mg PO BID #14 cap 11/15/18 [Macrobid] Sucralfate [Carafate] 1 gm PO QID #300 ml 11/15/18 - Allergies Allergies/Adverse Reactions: Allergies Allergy/AdvReac Type Severity Reaction Status Date / Time No Known Allergies Allergy Verified 10/31/18 15:59 Review of Systems ROS Statement: Except As Marked, All Systems Reviewed And Found Negative Constitutional: Positive for: Chills Gastrointestinal: Positive for: Nausea, Vomiting Genitourinary Female: Positive for: Dysuria, Pelvic Pain Physical Exam - Reviewed Nursing Documentation Reviewed: Yes Vital Signs Reviewed: Yes - Physical Exam Appears: Positive for: Well, Non-toxic, No Acute Distress Head Exam: Positive for: ATRAUMATIC, NORMAL INSPECTION, NORMOCEPHALIC Skin: Positive for: Normal Color, Warm, DRY Eye Exam: Positive for: Normal appearance ENT: Positive for: Normal ENT Inspection Neck: Positive for: Normal, Painless ROM Cardiovascular/Chest: Positive for: Regular Rate, Rhythm Respiratory: Positive for: CNT, Normal Breath Sounds Gastrointestinal/Abdominal: Positive for: Normal Exam, Soft Pelvic Exam: Positive for: External Exam Normal (Suprapubic tenderness on palpation rad from lower back. ) Back: Positive for: Normal Inspection, L CVA Tenderness Rectal: Positive for: Deferred Extremity: Positive for: Normal ROM Neurological/Psych: Positive for: Awake, Alert, Normal Tone - Laboratory Results Result Diagrams: 02/04/19 19:16 02/04/19 19:16 Urine POC: Negative Urine dip results: Positive for: Blood (small) - ECG O2 Sat by Pulse Oximetry: 98 - Progress ED Course And Treament: - cbc -cmp -ua -udip- small blood otherwise normal udip -urine c&s -upreg Zofran Toradol 0.[address] abd/pelvis w/o PO and IV to r/o kidney stone Pt re-evaluated verbalizes feeling better. pain 3/10, nausea subsided. Pt pending UA results as well as CT abd/pelvis report. Pt handed off to CINDY Matthews for follow-up on results and disposition. Re-evaluation Time: 19:58 Condition: Re-examined, Improved Disposition - Clinical Impression Clinical Impression: Flank pain - Disposition Disposition: Transfer of Care Disposition Time: 20:10 Condition: STABLE Patient Signed Over To: Maria Luisa Hi Handoff Comments: Pending UA results and Ct abd/pelvic Report. - POA Present On Arrival: None
[2019-02-04] MEDS ORDERED: Sodium Chloride 0.9% 1,000 ML IV SCH (18:45)
[2019-02-04 19:39] LABS: BASO # 0.1 K/uL (0.0-0.2); BASO % 0.8 % (0.0-2.0); EOS # 0.2 K/uL (0.0-0.7); EOS % 2.1 % (0.0-4.0); HEMOGLOBIN 11.4 g/dL (12.0-16.0); LYMPH # 2.7 K/uL (1.0-4.3); LYMPH % 33.8 % (20.0-40.0); MEAN CELL VOLUME 82.5 fl (81.0-99.0); MEAN CORPUSCULAR HEMOGLOBIN 27.9 pg (27.0-31.0); MEAN CORPUSCULAR HGB CONC 33.8 g/dL (33.0-37.0); MONO # 0.6 K/uL (0.0-0.8); MONO % 8.1 % (0.0-10.0); NEUT # 4.4 K/uL (1.8-7.0); NEUT % 55.2 % (50.0-75.0); NRBC % 0.1 % (0.0-0.0); RBC 4.09 Mil/uL (3.80-5.20); RED CELL DISTRIBUTION WIDTH 13.8 % (11.5-14.5); WHITE BLOOD COUNT 8.1 K/uL (4.8-10.8)
[2019-02-04 19:53] LABS: ALB/GLOB RATIO 1.4 (1.0-2.1); ALBUMIN 4.2 g/dL (3.5-5.0); ALT/SGPT 21 U/L (9-52); AST/SGOT 21 U/L (14-36); BLOOD UREA NITROGEN 11 mg/dl (7-17); CALCIUM 9.8 mg/dL (8.4-10.2); GFR NON-AFRICAN AMERICAN > 60; LIPASE 116 U/L (23-300)
[2019-02-04 20:03] LABS: SQUAMOUS EPITHIAL 1 /hpf (0-5); URINE BILIRUBIN NEGATIVE (NEGATIVE); URINE BLOOD SMALL (NEGATIVE); URINE CLARITY SLIGHTY-CLOUDY (Clear); URINE COLOR YELLOW (YELLOW); URINE GLUCOSE (UA) NEG (NEGATIVE); URINE LEUKOCYTE ESTERASE NEG Leu/uL (Negative); URINE PROTEIN NEGATIVE (NEGATIVE); URINE UROBILINOGEN 0.2-1.0 mg/dL (0.2-1.0)
--- NOTE | 2019-02-04 21:00 | ED PDOC ---
- Laboratory Results Result Diagrams: 02/04/19 19:16 02/04/19 19:16 Lab Results: Total Bilirubin 0.2 mg/dl (0.2-1.3) 02/04/19 19:16 AST 21 U/L (14-36) 02/04/19 19:16 ALT 21 U/L (9-52) 02/04/19 19:16 Alkaline Phosphatase 68 U/L (38-126) 02/04/19 19:16 Total Protein 7.4 G/DL (6.3-8.2) 02/04/19 19:16 Albumin 4.2 g/dL (3.5-5.0) 02/04/19 19:16 Globulin 3.1 gm/dL (2.2-3.9) 02/04/19 19:16 Albumin/Globulin Ratio 1.4 (1.0-2.1) 02/04/19 19:16 Lipase 116 U/L (23-300) 02/04/19 19:16 Urine Color Yellow (YELLOW) 02/04/19 18:53 Urine Clarity Slighty-cloudy (Clear) 02/04/19 18:53 Urine pH 7.0 (5.0-8.0) 02/04/19 18:53 Ur Specific [place] 1.014 (1.003-1.030) 02/04/19 18:53 Urine Protein Negative mg/dL (NEGATIVE) 02/04/19 18:53 Urine Glucose (UA) Neg mg/dL (NEGATIVE) 02/04/19 18:53 Urine Ketones Negative mg/dL (NEGATIVE) 02/04/19 18:53 Urine Blood Small (NEGATIVE) 02/04/19 18:53 Urine Nitrate Negative (NEGATIVE) 02/04/19 18:53 Urine Bilirubin Negative (NEGATIVE) 02/04/19 18:53 Urine Urobilinogen 0.2-1.0 mg/dL (0.2-1.0) 02/04/19 18:53 Ur Leukocyte Esterase Neg Luis/uL (Negative) 02/04/19 18:53 Urine RBC (Auto) 4 /hpf (0-3) H 02/04/19 18:53 Urine Microscopic WBC < 1 /hpf (0-5) 02/04/19 18:53 Ur Squamous Epith Cells 1 /hpf (0-5) 02/04/19 18:53 Urine POC: Negative - ECG O2 Sat by Pulse Oximetry: 98 - Progress ED Course And Treament: Case endorsed to conventional mortgage underwriter from [employer] pending CT EXAM: CT Abdomen and Pelvis without IV contrast CLINICAL HISTORY: R/o kidney stone TECHNIQUE: Axial computed tomography images of the abdomen and pelvis without intravenous contrast. 345.44 mGy-cm CONTRAST: Without COMPARISON: None provided. FINDINGS: LUNG BASES: The lung bases appear clear. No pleural effusions are seen. LIVER: 2 x 1.5 cm right hepatic lobe cyst is seen. GALLBLADDER AND BILE DUCTS: S/p cholecystectomy. Surgical clips are noted in the gallbladder fossa. PANCREAS: Unremarkable. SPLEEN: Unremarkable. ADRENAL GLANDS: Unremarkable. KIDNEYS, URETERS, AND BLADDER: The kidneys appear within normal limits. There is no hydronephrosis or hydroureter. No urinary calculi are seen. STOMACH AND BOWEL: Unremarkable appearance of the stomach and bowel. No evidence of bowel obstruction. No evidence suggesting enteritis or colitis. APPENDIX: No evidence of acute appendicitis on CT examination. PERITONEUM: No free fluid. No free air. LYMPH NODES: No lymphadenopathy is evident. REPRODUCTIVE: Unremarkable as visualized. VASCULATURE: No evidence of abdominal aortic aneurysm. BONES: No aggressive appearing osseous lesion. No acute osseous pathology evident. IMPRESSION: No acute pathology. No urinary calculi are seen Patient states she is feeling better on re-eval Patient educated on findings, discharged with rx Naproxen, Flexeril, zofran Advised follow up PMD within 2-3 days Return precautions given Disposition - Clinical Impression Clinical Impression: Abdominal pain, Back pain - POA Present On Arrival: None - Disposition Disposition: Routine/Home Disposition Time: 21:08 Condition: IMPROVED Prescriptions: Cyclobenzaprine [Cyclobenzaprine HCl] 10 mg PO BID PRN #14 tab PRN Reason: Muscle Spasm Naproxen [Naprosyn] 500 mg PO Q12 PRN #14 tablet PRN Reason: Pain, Moderate (4-7) Ondansetron [Zofran] 4 mg PO Q8H PRN #10 tab PRN Reason: Nausea/Vomiting Instructions: Low Back Pain in Adults, Acute Abdomen (Belly Pain) Forms: [employer] (Bengali)
[2019-02-04 21:52] VITALS: BP 115/73; PULSE 61; TEMP 98.7; O2SAT 96
--- NOTE | 2019-02-05 11:14 | CT ---
Date of service: 02/04/2019 PROCEDURE: CT Abdomen and Pelvis without intravenous contrast HISTORY: r/o kidney stone COMPARISON: Abdomen and pelvis CT 11/15/2018. TECHNIQUE: Helical CT of the abdomen and pelvis was performed without oral or intravenous contrast as per referring physician request. Coronal and sagittal reformats were generated.. Radiation dose: Total exam DLP = 345.44 mGy-cm. This CT exam was performed using one or more of the following dose reduction techniques: Automated exposure control, adjustment of the mA and/or kV according to patient size, and/or use of iterative reconstruction technique. FINDINGS: LOWER THORAX: Unremarkable. LIVER: No definite hepatic masses appreciated at this time or intrahepatic biliary duct dilatation however there is a small lucency the felt to be loculated fluid posterior lateral to the right lobe in image 50 series 3 measuring 2.1 x 1.3 cm GALLBLADDER AND BILE DUCTS: Prior cholecystectomy. PANCREAS: Unremarkable. No gross lesion or ductal dilatation. SPLEEN: Unremarkable. ADRENALS: Unremarkable. No mass. KIDNEYS AND URETERS: No radiodense urolithiasis, perinephric fluid collection or obstructive uropathy is appreciate bilaterally. The bilateral ureters appear normal caliber overall. VASCULATURE: Unremarkable. No aortic aneurysm. No aortic atherosclerotic calcification or mural plaque present. BOWEL: Unremarkable. No obstruction. No gross mural thickening. APPENDIX: Unremarkable. Normal appendix. PERITONEUM: Unremarkable. No free fluid. No free air. LYMPH NODES: Unremarkable. No enlarged lymph nodes. BLADDER: Unremarkable. REPRODUCTIVE: Unremarkable. BONES: No acute fracture. OTHER FINDINGS: None. IMPRESSION: Interval loculated fluid collection at the right lobe lateral to the liver as discussed above without enhancement pattern to suggest abscess. Examination otherwise unremarkable. No radiodense urolithiasis, obstructive uropathy or perinephric reaction bilaterally. Preliminary report provided by [email or web address], 02/04/2019, 8:13 p.m..
== END 2019-02-04 21:53 | disposition home or self-care (01) ==
LOC: H.ER 17:55
DX: R10.9 Unspecified abdominal pain (principal); M54.5 Low back pain; Z87.891 Personal history of nicotine dependence
CPT/HCPCS: 74176; 80053; 81003; 81025; 83690; 85025; 87086; 96374; 96375; 99285; J1885; J2405; J7030